=== PATIENT | male | born 1980 | race Two or more races ===

== ENCOUNTER 2024-04-28 10:29 | Inpatient (IN) | payer OTHER ==
[~2024-04-28] VITALS: Ht 170.2 cm; Wt 67.6 kg
[~2024-04-28 10:29] MED LIST: BIKTARVY 50-201 EACH PO; EZALLOR SPRINKLE5 MG PO
--- NOTE | 2024-04-28 11:01 | NUR ---
PTE ALERAT Y ORIENTADO X3 EN COMPANIA DE FAMILIAR REFIERE VENIR POR DOLOR EN AREA DE OPERACION KAYE ANAL. SE MIDEN S/V Y SE UBICA.
[2024-04-28] MEDS ORDERED: DEXAMETHASONE SODIUM PHOSPHATE 4 MG/ML VIAL IV STA (11:20)
[2024-04-28] MEDS ORDERED: LIDOCAINE HCL VISCOUS 20MG/ML BLIST 15ML MM STA (11:22)
[2024-04-28] MEDS ORDERED: PIPERACILLIN/TAZOBACTAM SODIUM 3.375 GM VIAL IV STA (11:23)
--- NOTE | 2024-04-28 11:45 | NUR ---
PTE ALERTA Y OREINTADA X3 SE LE ADMINISTRA MEDICAMENTOS MARTELL ORDEN MEDICA Y SE LE ORIENTA SOBRE TX MEDICO QUE REFIERE ENTENDER Y ACEPTAR.
[2024-04-28] MEDS ORDERED: FAMOTIDINE/PF 20 MG in 0.9 % SODIUM CHLORIDE 100 ML IV SCH (19:29)
[2024-04-28] MEDS ORDERED: CEFTRIAXONE SODIUM 2,000 MG in 0.9 % SODIUM CHLORIDE 100 ML IV SCH (19:29)
[2024-04-28] MEDS ORDERED: ACETAMINOPHEN 325 MG TABLET PO PRN (19:30)
[2024-04-28] MEDS ORDERED: 0.9 % SODIUM CHLORIDE 1,000 ML IV SCH (20:00)
[2024-04-28] MEDS ORDERED: MORPHINE SULFATE 4 MG/ML CARTRIDGE IV SCH (21:00)
[2024-04-29 00:32] LABS: ALBUMIN 4.4 gm/dL (3.4-5.0); BILIRUBIN TOTAL 0.62 mg/dL (0.3-1.2); CALCIUM 9.6 mg/dL (8.5-10.1); CREATININE SERUM 1.06 mg/dL (0.70-1.30); GFR 75.9; GLOBULINA 4.5 G/DL (2.4-3.5); POTASSIUM 3.97 mEq/L (3.5-5.1); TOTAL PROTEIN 8.9 gm/dL (6.4-8.2)
[2024-04-29] MEDS ORDERED: METROnidazole 500 MG TABLET (vss) PO SCH (21:09)
[2024-04-29] MEDS ORDERED: CEFEPIME HCL 2,000 MG in 0.9 % SODIUM CHLORIDE 100 ML IV SCH (21:09)
[2024-04-30 07:42] LABS: HEPATITIS B CORE IGG NEGATIVE
[2024-04-30 07:43] LABS: HEPATITIS C VIRUS ANTIBODY NON REACTIVE
[2024-04-30] MEDS ORDERED: METROnidazole 500 MG TABLET PO SCH (09:00)
[2024-05-02] MEDS ORDERED: AMPICILLIN SODIUM/SULBACTAM NA 3,000 MG in 0.9 % SODIUM CHLORIDE 100 ML IV SCH (07:18)
[2024-05-02] MEDS ORDERED: SULFAMETHOXAZOLE/TRIMETHOPRIM DS 1 TAB PO SCH (09:00)
[2024-05-02] MEDS ORDERED: MORPHINE SULFATE 4 MG/ML VIAL IV PRN (11:00)
[2024-05-02] MEDS ORDERED: MORPHINE SULFATE 4 MG/ML CARTRIDGE IV PRN (12:00)
[2024-05-03 06:54] LABS: chla t NEGATIVE; neiss NEGATIVE
[2024-05-03] MEDS ORDERED: POLYETHYLENE GLYCOL 3350 17 GM BLIST.PACK PO SCH (17:00)
[2024-05-03 21:22] LABS: HEMATOCRIT 42.5 % (39.0-48.0); HEMOGLOBIN 14.5 g/dL (13-16.00); MEAN CELL VOLUME 102.1 fL (80.0-100.00); MEAN CORPUSCULAR HEMOGLOBIN 34.8 pg (27.00-32.0); MEAN CORPUSCULAR HGB CONC 34.1 g/dl (32.0-36.0); PLATELET COUNT 159 K/uL (150-450); RED BLOOD COUNT 4.16 M/uL (4.00-6.00); RED CELL DISTRIBUTION WIDTH 13.4 % (11.5-14.5)
[2024-05-03 21:39] LABS: INR 1.05
[2024-05-03 21:50] LABS: ALBUMIN 3.7 gm/dL (3.4-5.0); ALKALINE PHOSPHATASE 61 U/L (50-136); ALT/SGPT 47 U/L (12-78); ANION GAP 6 (10.0-20.0); AST/SGOT 25 U/L (15-37); BLOOD UREA NITROGEN 13 mg/dL (7-18); BUN CREA RATIO 13 (7.0-25.0); CALCIUM 8.7 mg/dL (8.5-10.1); CARBON DIOXIDE 29 mEq/L (21-32); CHLORIDE 111 mmol/L (98-107); CREATININE SERUM 1.02 mg/dL (0.70-1.30); GFR 79.34; GLOBULINA 3.3 G/DL (2.4-3.5); GLUCOSE FASTING 114 mg/dL (65-100); OSMOLALITY SERUM 284 MOSM/KG (275-295); POTASSIUM 4.27 mEq/L (3.5-5.1); SODIUM 142 mmol/L (136-145)
[2024-05-03 22:00] LABS: C-REACTIVE PROTEIN < 0.29 MG/DL (0.00-0.29)
[2024-05-04] MEDS ORDERED: FAMOTIDINE/PF 20 MG/2 ML VIAL IV PUSH SCH (09:00)
[2024-05-04] MEDS ORDERED: LACTOBACILLUS ACIDOPHILUS 1 CAP CAP PO SCH (09:00)
[2024-05-04] MEDS ORDERED: HYOSCYAMINE SULFATE 0.125 MG TAB.SUBL SL SCH (09:00)
[2024-05-04] MEDS ORDERED: GABAPENTIN 300 MG CAPSULE PO SCH (09:00)
[2024-05-04] MEDS ORDERED: OxyCODONE HCL 5 MG TABLET (ROXICODONE) PO PRN (09:00)
[2024-05-04] MEDS ORDERED: MORPHINE SULFATE 4 MG/ML CARTRIDGE IV PRN (09:00)
[2024-05-04] MEDS ORDERED: ONDANSETRON HCL 2 MG/ML VIAL IV PRN (09:00)
[2024-05-04] MEDS ORDERED: RINGERS SOLUTION,LACTATED 1,000 ML IV SCH (09:00)
[2024-05-04] MEDS ORDERED: POVIDONE-IODINE 118 ML BOTT TOP ONE (09:30)
[2024-05-04] MEDS ORDERED: DIBUCAINE 15 GM OINT..GM. TUBE RECTAL ONE (09:30)
[2024-05-04] MEDS ORDERED: LIDOCAINE HCL 1%/EPINEPHRINE 20ML VIAL IJ ONE (09:30)
[2024-05-04] MEDS ORDERED: HEMOSTATIC MATRIX 1 KIT KIT TOP ONE (09:30)
[2024-05-04] MEDS ORDERED: BUPIVACAINE HCL 30 ML VIAL IJ ONE (09:30)
[2024-05-04 11:03] LABS: HEMATOCRIT 42.3 % (39.0-48.0); HEMOGLOBIN 14.6 g/dL (13-16.00); MEAN CELL VOLUME 102.5 fL (80.0-100.00); MEAN CORPUSCULAR HEMOGLOBIN 35.4 pg (27.00-32.0); MEAN CORPUSCULAR HGB CONC 34.5 g/dl (32.0-36.0); PLATELET COUNT 154 K/uL (150-450); RED BLOOD COUNT 4.13 M/uL (4.00-6.00); RED CELL DISTRIBUTION WIDTH 13.3 % (11.5-14.5)
[2024-05-04] MEDS ORDERED: ACETAMINOPHEN 500 MG GEL..CAP PO SCH (14:00)
[2024-05-04] MEDS ORDERED: POLYETHYLENE GLYCOL 3350 17 GM BLIST.PACK PO SCH (17:00)
[2024-05-05 08:33] LABS: HEMATOCRIT 41.8 % (39.0-48.0); HEMOGLOBIN 14.5 g/dL (13-16.00); MEAN CORPUSCULAR HEMOGLOBIN 35.4 pg (27.00-32.0); MEAN CORPUSCULAR HGB CONC 34.7 g/dl (32.0-36.0); PLATELET COUNT 149 K/uL (150-450); RED CELL DISTRIBUTION WIDTH 13.8 % (11.5-14.5)
[2024-05-05 09:03] LABS: ALBUMIN 3.6 gm/dL (3.4-5.0); CREATININE SERUM 0.88 mg/dL (0.70-1.30); GFR 94.08; MAGNESIUM 2.2 mg/dL (1.8-2.4); PHOSPHOROUS 3.5 mg/dL (2.5-4.9); POTASSIUM 4.11 mEq/L (3.5-5.1)
[2024-05-05] MEDS ORDERED: AMOX-CLAV 875-1 EACH PO (14:09)
[2024-05-05] MEDS ORDERED: BACTRIM DS TAB1 EACH PO (14:09)
[2024-05-05] MEDS ORDERED: INTESTINEX680 M1 PO (14:09)
[2024-05-05] MEDS ORDERED: HIBICLENS118 ML TOP (14:09)
[2024-05-05] MEDS ORDERED: CELECOXIB200 MG PO (15:55)
[2024-05-05] MEDS ORDERED: NEURONTIN300 MG PO (15:55)
== END 2024-05-05 16:30 | disposition home or self-care (01) | DRG 348 ==
LOC: ER 10:30 → SEC-K 19:36 → MEDJ 19:36 → SEC-K 04-29 11:37 → MEDJ 05-01 20:58
PROVIDERS: General Practice; Internal Medicine; Internal Medicine Infectious Disease; Surgery; ADMIT Internal Medicine; ATTEND Internal Medicine
PROC: 0D9 Gastrointestinal System, Drainage (ICD-10-PCS; 2024-05-04)
PROC: 3E0T3BZ Introduction of Anesthetic Agent into Peripheral Nerves and Plexi, Percutaneous Approach (ICD-10-PCS; 2024-05-04)
PROC: 0DBQ4ZZ Excision of Anus, Percutaneous Endoscopic Approach (ICD-10-PCS; principal; 2024-05-04 07:00)
DX: K61.1 Rectal abscess (principal); B20 Human immunodeficiency virus [HIV] disease